=== PATIENT | female | born 1965 | race Caucasian/White ===

== ENCOUNTER 2023-07-28 08:12 | Emergency (ER) | payer BC ==
[~2023-07-28] VITALS: Ht 157.5 cm; Wt 65.8 kg
[2023-07-28] MEDS ORDERED: ONDANSETRON 4 MG/2 ML VIAL ONE (08:49)
[2023-07-28] MEDS: ONDANSETRON 4 MG/2 ML VIAL IV ONE (08:58)
[2023-07-28] MEDS: IV NORMAL SALINE 1000 ML BAG IV ONE (08:58)
[2023-07-28] MEDS ORDERED: ONDA4TAB5 PO (08:58)
[2023-07-28 09:47] VITALS: BP 131/81; O2SAT 99
[2023-08-03] MEDS ORDERED: GENT5DRO4 EACHEYE (07:18)
== END 2023-07-28 09:48 | disposition home or self-care (01) ==
LOC: ER 08:12
DX: R10.84 Generalized abdominal pain (principal); R11.2 Nausea with vomiting, unspecified; R19.7 Diarrhea, unspecified; Z90.49 Acquired absence of other specified parts of digestive tract
CPT/HCPCS: 99283; 96374; 96361; J2405; J7040; A4606; A4663